=== PATIENT | male | born 1950 | race Caucasian/White ===

== ENCOUNTER 2016-05-24 07:29 | Day surgery (SDC) | payer MEDICAID, MEDICARE ==
[2016-05-23 12:59] VITALS: BMI 40.6
[~2016-05-24 07:29] MED LIST: LACTATED RINGERS 1,000 ML IV SCH; LIDOCAINE 1% 20 ML VIAL (10MG/ML) FOR IV START INTRADERMA PRN
[2016-05-24 08:01] VITALS: RESP 16; TEMP 99.4
[2016-05-24] MEDS ORDERED: LIDOCAINE 1% INJ 10MG/ML (20 ML MDV) ONE (08:05)
[2016-05-24] MEDS ORDERED: PROPOFOL 10 MG/ML 20 ML VIAL IV ONE (08:05)
[2016-05-24] MEDS ORDERED: LIDOCAINE 1% 20 ML VIAL (10MG/ML) FOR IV START INTRADERMA ONE (08:06)
[2016-05-24 08:10] LABS: Glucose,Whole Blood 148 mg/dL (75-99)
--- NOTE | 2016-05-24 08:32 | P.DS ---
Providers Attending physician: Ruthie Barkley Primary care physician: Chapincito Servin Plan - Discharge Summary Discharge Medication List Atenolol [Tenormin] 50 mg PO DAILY 05/23/16 [History] Ibuprofen [Motrin] 600 mg PO DAILY PRN 05/23/16 [History] Multivitamins, Thera [Multivitamin] 1 tab PO DAILY 05/23/16 [History] metFORMIN HCL 1,000 mg PO BID 05/23/16 [History] Discharge Disposition: HOME SELF-CARE
--- NOTE | 2016-05-24 08:32 | P.OP ---
Date of Procedure: 05/24/16 Preoperative Diagnosis: Screening colonoscopy Postoperative Diagnosis: Very poor bowel prep aborted procedure at approximately proximal transverse colon Procedure(s) Performed: Attempted colonoscopy Anesthesia: MAC Surgeon: Ruthie Barkley Estimated Blood Loss (ml): 0 IV fluids (ml): 400 Pathology: none sent Condition: stable Disposition: PACU Indications for Procedure: Screening colonoscopy Operative Findings: Extremely poor bowel prep appears to have some beginning of some diverticuli Description of Procedure: Patient was taken to the endoscopy suite and following sedation rectal exam was performed. Patient was noted to have good sphincter tone no masses. Colonoscope was passed through the anus into the rectum. There was stool immediately present upon entering the rectum however this was irrigated and the scope was able to be passed into the sigmoid colon. What appeared to be diverticuli were noted in the sigmoid colon although the prep was very poor. The scope was able to be passed up to splenic flexure into the proximal transverse colon and at this point there was large amount of formed stool. Secondary to the large amount of stool was felt that it would be most appropriate to abort the procedure and to have the patient repeat prep and repeat the procedure. Impression/plan: 1. Aborted colonoscopy poor prep 2. Repeat prep and repeat colonoscopy
[2016-05-24 08:51] VITALS: BP 138/73; PULSE 67
== END 2016-05-24 09:45 | disposition home or self-care (01) ==
LOC: ORWHC2ENDO 07:29
PROVIDERS: ATTEND Surgery
DX: Z12.11 Encounter for screening for malignant neoplasm of colon (principal); E11.9 Type 2 diabetes mellitus without complications; I10 Essential (primary) hypertension; Z53.8 Procedure and treatment not carried out for other reasons; Z88.0 Allergy status to penicillin; Z79.1 Long term (current) use of non-steroidal anti-inflammatories (NSAID); Z79.84 Long term (current) use of oral hypoglycemic drugs; Z79.899 Other long term (current) drug therapy; Z87.891 Personal history of nicotine dependence
CPT/HCPCS: J2001; J2704; G0121; 45378

== ENCOUNTER 2022-02-14 06:42 | Day surgery (SDC) | payer MEDICARE ==
[2022-02-08 11:03] VITALS: BMI 36.9
[2022-02-14 07:38] VITALS: TEMP 97
[2022-02-14] MEDS ORDERED: LACTATED RINGERS 1,000 ML IV ONE (07:38)
[2022-02-14] MEDS ORDERED: PROPOFOL 10 MG/ML 20 ML VIAL IV ONE (07:40)
[2022-02-14 07:42] LABS: Glucose,Whole Blood 142 mg/dL (70-110)
--- NOTE | 2022-02-14 07:44 | P.GSHP ---
History of Present Illness H&P Date: 02/14/22 CHIEF COMPLAINT: Colon screen HISTORY OF PRESENT ILLNESS: The patient is a 71-year-old male who presents for colon screen. Lower endoscopy was offered for further evaluation and management. PAST MEDICAL HISTORY: Please see list. PAST SURGICAL HISTORY: Please see list. MEDICATIONS: Please see list. ALLERGIES: Please see list. SOCIAL HISTORY: No illicit drug use FAMILY HISTORY: No reports of Crohn disease or ulcerative colitis. REVIEW OF ORGAN SYSTEMS: CONSTITUTIONAL: No reports of fevers or chills. PHYSICAL EXAM: VITAL SIGNS: Stable GENERAL: Well-developed pleasant in no acute distress. HEENT: No scleral icterus. Extraocular movements grossly intact. Moist buccal mucosa. NECK: Supple without lymphadenopathy. CHEST: Unlabored respirations. Equal bilateral excursions. CARDIOVASCULAR: Regular rate and rhythm. Distal 2+ pulses. ABDOMEN: Soft, nontender, nondistended. MUSCULOSKELETAL: No clubbing, cyanosis, or edema. ASSESSMENT: 1. Colon screen. PLAN: 1. Recommend proceeding with a lower endoscopy Past Medical History Past Medical History: Diabetes Mellitus, GERD/Reflux, Hypertension, Osteoarthritis (OA) Additional Past Medical History / Comment(s): neuropathy kezia feet History of Any Multi-Drug Resistant Organisms: None Reported Past Surgical History: Hernia Repair Additional Past Surgical History / Comment(s): deviated septum repair, COLONOSCOPY Past Anesthesia/Blood Transfusion Reactions: No Reported Reaction Smoking Status: Former smoker - Past Family History Mother Family Medical History: Congestive Heart Failure (CHF) Father Family Medical History: Coronary Artery Disease (CAD) Sister(s) Family Medical History: Cancer Additional Family Medical History / Comment(s): BREAST CANCER Brother(s) Family Medical History: Cancer Medications and Allergies Home Medications Medication Instructions Recorded Confirmed Type Ibuprofen [Motrin] 600 mg PO DAILY PRN 05/23/16 02/08/22 History Multivitamins, Thera [Multivitamin] 1 tab PO DAILY 05/23/16 02/08/22 History atenoloL [Tenormin] 50 mg PO DAILY 05/23/16 02/08/22 History metFORMIN HCL [Glucophage] 1,000 mg PO BID 05/23/16 02/08/22 History Pentoxifylline 400 mg PO DAILY 02/08/22 02/08/22 History Rosuvastatin [Crestor] 5 mg PO DAILY 02/08/22 02/08/22 History hydroCHLOROthiazide [Hydrodiuril] 25 mg PO DAILY 02/08/22 02/08/22 History Allergies Allergy/AdvReac Type Severity Reaction Status Date / Time Penicillins Allergy Rash/Hives Verified 02/08/22 10:35 Surgical - Exam Vital Signs Temp Pulse Resp BP Pulse Ox 97 F L 59 L 16 160/72 95 02/14/22 07:36 02/14/22 07:36 02/14/22 07:36 02/14/22 07:36 02/14/22 07:36 Results - Labs Abnormal Lab Results - Last 24 Hours (Table) 02/14/22 Range/Units 07:38 POC Glucose (mg/dL) 142 H (70-110) mg/dL
--- NOTE | 2022-02-14 08:02 | P.PCN ---
Date of Procedure: 02/14/22 Description of Procedure: PREOPERATIVE DIAGNOSIS: Colonoscopy screening. POSTOPERATIVE DIAGNOSIS: Colonoscopy screening. OPERATION: Colonoscopy to the cecum, ileocecal valve and appendiceal orifice. SURGEON: Rosario Wallace MD. ANESTHESIA: MAC. INDICATIONS: The patient is a 71-year-old male who presents for colonoscopy screening. Benefits and risks were described and informed consent was obtained. DESCRIPTION OF PROCEDURE: The patient had undergone Sutab prep. The patient had been brought into the operating room and laid in the left lateral decubitus position. After adequate intravenous sedation, the rectum was examined with 2% lidocaine jelly. The prostate was unremarkable. No external hemorrhoids were encountered. The rectal tone was within normal limits. No lesions were palpated in the rectal vault. An Olympus colonoscope was advanced until the cecum, ileocecal valve and appendic eal orifice were clearly viewed. The prep was fair. No scattered diverticulosis was encountered. No colonic polyps were found. No evidence of focal colitis was found. Retroflexion of the scope demonstrated grade 1 internal hemorrhoids without active bleeding or inflammation. The colon was desufflated. The patient had tolerated the procedure well. Withdrawal time was over 6 minutes. FINDINGS: Aronchick preparation quality scale 3+(1-5) Internal hemorrhoids, grade 1 No external prolapsed hemorrhoids. No arteriovenous malformations. No adenomatous polyps. No focal colitis. RECOMMENDATIONS: Lower endoscopy in 5 years, 2026 or Colog[facility] Recommend extended three-day prep Plan - Discharge Summary Discharge Rx Participant: No New Discharge Prescriptions: Continue metFORMIN HCL [Glucophage] 1,000 mg PO BID Multivitamins, Thera [Multivitamin (formulary)] 1 tab PO DAILY Ibuprofen [Motrin] 600 mg PO DAILY PRN PRN Reason: Pain atenoloL [Tenormin] 50 mg PO DAILY hydroCHLOROthiazide [Hydrodiuril] 25 mg PO DAILY Pentoxifylline 400 mg PO DAILY Rosuvastatin [Crestor] 5 mg PO DAILY Discharge Medication List Ibuprofen [Motrin] 600 mg PO DAILY PRN 05/23/16 [History] Multivitamins, Thera [Multivitamin (formulary)] 1 tab PO DAILY 05/23/16 [History] atenoloL [Tenormin] 50 mg PO DAILY 05/23/16 [History] metFORMIN HCL [Glucophage] 1,000 mg PO BID 05/23/16 [History] Pentoxifylline 400 mg PO DAILY 02/08/22 [History] Rosuvastatin [Crestor] 5 mg PO DAILY 02/08/22 [History] hydroCHLOROthiazide [Hydrodiuril] 25 mg PO DAILY 02/08/22 [History] Follow up Appointment(s)/Referral(s): Rosario Wallace MD [STAFF PHYSICIAN] - As Needed Patient Instructions/Handouts: *Sur[facility] - (Anesthesia) Endoscopy Discharge Instructions, Colonoscopy (DC) Activity/Diet/Wound Care/Special Instructions: Repeat colonoscopy 5 years, 2026 for Colog[facility]d Discharge Disposition: HOME SELF-CARE
[2022-02-14 08:25] VITALS: BP 161/63; PULSE 64; RESP 16
== END 2022-02-14 08:47 | disposition home or self-care (01) ==
LOC: ORWHC2ENDO 06:42
PROVIDERS: ATTEND Surgery Plastic and Reconstructive Surgery
DX: Z12.11 Encounter for screening for malignant neoplasm of colon (principal); K64.0 First degree hemorrhoids; K21.9 Gastro-esophageal reflux disease without esophagitis; E11.40 Type 2 diabetes mellitus with diabetic neuropathy, unspecified; I10 Essential (primary) hypertension; M19.90 Unspecified osteoarthritis, unspecified site; Z98.890 Other specified postprocedural states; Z82.49 Family history of ischemic heart disease and other diseases of the circulatory system; Z80.3 Family history of malignant neoplasm of breast; Z79.1 Long term (current) use of non-steroidal anti-inflammatories (NSAID); Z79.84 Long term (current) use of oral hypoglycemic drugs; Z79.899 Other long term (current) drug therapy; Z88.0 Allergy status to penicillin; Z87.891 Personal history of nicotine dependence
CPT/HCPCS: J2704; G0121